=== PATIENT | female | born 1955 | race Caucasian/White ===

== ENCOUNTER 2016-10-04 08:04 | Day surgery (SDC) | payer BC ==
[2016-09-16 11:15] VITALS: BMI 27.2
[~2016-10-04 08:04] MED LIST: ALPRAZolam 0.25 MG TAB PO PRN; DEXAMETHASONE SOD PHOSPHATE 10 MG/ML 1 ML VIAL IV ONE; HEPARIN SODIUM,PORCINE 5,000 UNIT/ML 1 ML VIAL SQ ONE; LACTATED RINGERS 1,000 ML IV SCH; MIDAZOLAM 2 MG/2 ML VIAL IV PRN; ONDANSETRON 4 MG/2 ML VIAL IVP ONE; Pre Op ABX Message 1 EACH MISC MISCELLANE ONE
[2016-10-04] MEDS ORDERED: ALPRAZolam 0.25 MG TAB PO PRN (09:05)
[2016-10-04] MEDS: LACTATED RINGERS 1,000 ML IV SCH ×2 (09:06→14:43)
[2016-10-04] MEDS ORDERED: SODIUM BICARB 4% 5 ML VIAL (0.48 MEQ/ML) MISCELLANE ONE (09:42)
[2016-10-04] MEDS ORDERED: LIDOCAINE 1% INJ 10MG/ML (20 ML MDV) SQ ONE (09:42)
[2016-10-04] MEDS ORDERED: METHYLENE BLUE 10 MG/ML 1 ML VIAL IV ONE ×2 (12:14→15:00)
--- NOTE | 2016-10-04 12:29 | NM ---
EXAMINATION TYPE: NM sentinel node injection DATE OF EXAM: 10/04/2016 10:35 AM COMPARISON: NONE HISTORY: Left breast cancer TECHNIQUE AND FINDINGS: The procedure of sentinel lymph node injection was explained to the patient. The benefits, alternatives, and risks were discussed. An informed consent was then obtained. Overlying skin is cleaned with sterile alcohol. Lidocaine buffered with bicarbonate was used as anes thetic into the skin and subcutaneous tissue surrounding the nipple. Following this, 519 uCi Tc 99m Filtered Sulfur Colloid was injected into 4 equivalent doses at 12, 3, 6, and 9:00 position surroundi ng the left nipple intradermally. The injection sites were massaged by medical laboratory technologist for 10 minutes after injection. T he patient tolerated the procedure well without any immediate complication. The patient was kept in the radiology department for short stay after the procedure and then taken to surgery for surgical pr ocedure what is presumed intraoperative gamma probe will be used for sentinel lymph node detection. IMPRESSION: Left breast radiotracer injection for sentinel node localization as above.
[2016-10-04] MEDS ORDERED: HEPARIN SODIUM,PORCINE 5,000 UNIT/ML 1 ML VIAL SQ ONE (14:32)
[2016-10-04] MEDS ORDERED: fentaNYL (PF) 50 MCG/ML 2 ML AMP ONE (14:45)
[2016-10-04] MEDS ORDERED: MIDAZOLAM 2 MG/2 ML VIAL ONE (14:45)
[2016-10-04] MEDS ORDERED: ONDANSETRON 4 MG/2 ML VIAL ONE (14:45)
[2016-10-04] MEDS ORDERED: NEOSTIGMINE 1 MG/ML 10 ML VIAL ONE (14:45)
[2016-10-04] MEDS ORDERED: ceFAZolin 1,000 MG VIAL ONE (14:45)
[2016-10-04] MEDS ORDERED: GLYCOPYRROLATE 0.2 MG/ML 2 ML VIAL ONE (14:45)
[2016-10-04] MEDS ORDERED: ROCURONIUM BROMIDE 10 MG/ML 10 ML VIAL IV ONE (14:45)
[2016-10-04] MEDS ORDERED: METHYLENE BLUE 10 MG/ML 1 ML VIAL INJ ONE ×2 (15:34)
--- NOTE | 2016-10-04 16:02 | MM ---
EXAMINATION TYPE: MG pre op needle loc LT DATE OF EXAM: 10/04/2016 10:56 AM COMPARISON: Prior mammogram CLINICAL HISTORY: Left breast carcinoma TECHNIQUE: Needle localization with wire placement and surgical excision of area of concern in the left breast. FINDINGS: The procedure of needle localization with wire placement and than surgical excision was explained to the patient. Benefits, alternatives, and risks were discussed. An informed consent was then obtained. The overlying skin was prepped and draped in usual sterile fashion. Lidocaine buffered with bicarbonate was used as anesthetic into the skin and subcutaneous tissue up to the level of area of concern. Subsequent 90 degrees mammogram show the needle to be in satisfactory position relative to the targeted area. At this point, wire was placed and the needle was withdrawn. The wire is noted to be suboptimally positioned and using similar technique and a second wire was placed in appropriate position. The wires were fixed to patient's skin. Images were marked for surgeon. The patient tolerated the procedure well without any immediate complication. The patient was kept in the radiology department for short stay after the procedure and then taken to surgery for surgical excision. Metallic marker and wire are identified in specimen mammogram. The patient was kept in hospital for short stay after the procedure and then discharged home in stable condition. IMPRESSION: Successful, uncomplicated needle localization with wire placement and surgical excision of marker in the left breast, full pathology results to follow. Pathology Results: Malignant A. LEFT AXILLA SENTINEL LYMPH NODE, BIOPSY: LYMPH NODE WITH PREVIOUS BIOPSY RELATED CHANGES INCLUDING FIBROSIS, FAT NECROSIS, HEMOSIDERIN LADEN MACROPHAGES AND FOREIGN BODY REACTION TO EMBEDDED REFRACTILE MATERIAL. NEGATIVE FOR METASTATIC MALIGNANCY. CK7 AND OLGA IMMUNOPEROXIDASE STAINS ARE CONFIRMATORY ( CONTROLS APPROPRIATE). B. BREAST, LEFT, LUMPECTOMY: INVASIVE DUCTAL CARCINOMA AND DUCTAL CARCINOMA IN SITU. INVASIVE CARCINOMA EXTENDS TO BLUE INKED (ANTERIOR) AND GREEN INKED ( INFERIOR) MARGINS. EXTENSIVE LOBULAR NEOPLASIA (ALH/LCIS). SEE SURGICAL PATHOLOGY CANCER CASE SUMMARY AND COMMENT. C. BREAST, LEFT, MEDIAL MARGIN RE-EXCISION: BENIGN BREAST WITH FIBROCYSTIC CHANGES AND PREVIOUS BIOPSY SITE RELATED CHANGES. D. BREAST, LEFT, SUPERIOR MARGIN RE-EXCISION: BENIGN BREAST WITH FIBROCYSTIC CHANGES. E. BREAST, LEFT, NEW LATERAL MARGIN, EXCISION: LOBULAR NEOPLASIA (ALH/LCIS). BACKGROUND FIBROCYSTIC CHANGES. SEE COMMENT. F. BREAST, LEFT NEW POSTERIOR MARGIN, EXCISION: BENIGN BREAST WITH FIBROCYSTIC CHANGES. G. BREAST, LEFT, NEW INFERIOR MARGIN, EXCISION: BENIGN BREAST WITH FIBROCYSTIC CHANGES AND FOCAL OSSEOUS METAPLASIA. Recommendation Appropriate oncologic management. MTDD
--- NOTE | 2016-10-04 16:11 | MM ---
Surgical specimen HISTORY: Status post excision Patient's surgical clip, wire are present within the specimen, stellate density within the soft tissues compatible with patient's history of breast carcinoma. See dictated report preoperative needle localization date. Recommendation Appropriate oncologic management. MTDD
[2016-10-04] MEDS ORDERED: LACTATED RINGERS 1,000 ML IV ONE (16:29)
--- NOTE | 2016-10-04 16:51 | P.OP ---
Date of Procedure: 10/04/16 Preoperative Diagnosis: Left breast cancer Postoperative Diagnosis: Same Procedure(s) Performed: Left endolymphatic node mapping, left breast lumpectomy, hyperplastic tissue rearrangement, insertion of Biozorb, left axillary sentinel node biopsy Anesthesia: LEXIE Surgeon: Tonya Shell Estimated Blood Loss (ml): 5 IV fluids (ml): 900 Pathology: other (Left breast lumpectomy tissue, left breast sentinel node biopsy) Condition: stable Disposition: PACU Indications for Procedure: Left breast cancer Operative Findings: Left breast dense tissue Description of Procedure: Patient was taken to the operating room and following induction of general anesthesia the left breast and axilla were prepped and draped in a sterile fashion. Prior to this 5 mL of half-strength methylene blue were injected in the left periareolar region and the breast was massaged. The lumpectomy portion was performed initially. An incision was made and carried down to the hook of the wire. Surrounding tissue was excised. The biopsy cavity was clearly seen in our resected specimen. Additional margins were obtained secondary to concern that the tissue was very dense. Following this the specimen was interrogated using the margin probe. Superior lateral and inferior margins appeared to have some positivity on the margin probe. All margins were reexcised and no margins were sent for final evaluation. These were painted as to the exterior surface of the margin. Additionally specimen itself was painted. Specimen was sent for radiographic evaluation and confirmation that the clip been removed was in the specimen was obtained. After assured that hemostasis was attained the axilla was approached. Using the neoprobe the location for the incision was chosen. Incision was made and carried down to the axillary tissue. Blue radioactive lymph node was identified. The 10 second count on the lymph node was and 97,000. The background count was 6 at 10 seconds. The lymph node was sent for pathologic evaluation and frozen section did not reveal any tumor within the lymph node. There was reactive change this is most likely consistent with a lymph node which had been sampled adequately biopsied preoperatively. The deep tissues were closed using 3-0 Vicryl suture followed by closure of the skin using 4-0 Monocryl. Prior to positioning the inferior wall instruments counts were correct as were changed. Following this the breast cavity was again approached the abdomen in plastic freeing of the tissue was performed such that the tissue fell into the cavity space however the cavity was relatively and marked using the BioSorb. The BioSorb size was used. The dissection was carried to the muscle of the chest wall anteriorly just under the vaginal assured that hemostasis was attained BioSorb was secured in place using 2-0 Vicryl suture. The breast tissues were reapproximated over the BioSorb using 3-0 Vicryl sutures. Skin was closed with 4-0 Monocryl. Patient tolerated procedure in stable condition all instrument and sponge counts were correct at the end of the case. All instrument and sponge counts were correct at the end of the case.
--- NOTE | 2016-10-04 16:53 | P.DS ---
Providers Attending physician: Tonya Shell Primary care physician: Edmund Sykes Plan - Discharge Summary New Discharge Prescriptions: HYDROcodone/APAP 5-325MG [[place] 5] 1 - 2 each PO Q4H PRN #20 tab PRN Reason: Pain Discharge Medication List Aspirin [Adult Low Dose Aspirin EC] 81 mg PO DAILY 09/16/16 [History] Atorvastatin [Lipitor] 20 mg PO HS 09/16/16 [History] Cholecalciferol [Vitamin D3] 5,000 unit PO DAILY 09/16/16 [History] Nebulzier 1 applicate IH DIRECTED PRN 09/16/16 [History] amLODIPine BESYLATE [Norvasc] 5 mg PO QAM 09/16/16 [History] Cyanocobalamin [Vitamin B-12] 1,000 mcg PO DAILY 09/21/16 [History] HYDROcodone/APAP 5-325MG [[place] 5] 1 - 2 each PO Q4H PRN #20 tab 10/04/16 [Rx] Follow up Appointment(s)/Referral(s): Tonya Shell MD [STAFF PHYSICIAN] - 1 Week Activity/Diet/Wound Care/Special Instructions: Patient may shower after 48 hours Wear bra at all times Do not drive if taking pain medications Do not drive today Discharge Disposition: HOME SELF-CARE
[2016-10-04 17:10] VITALS: TEMP 97.5
[2016-10-04] MEDS: HYDROmorphone 1 MG/ML 1 ML SYRINGE IVP PRN ×2 (17:31→17:39)
[2016-10-04 17:57] VITALS: RESP 16
[2016-10-04] MEDS ORDERED: HYDROcodone/APAP 5-325MG 1 EACH TAB PO ONE (18:14)
[2016-10-04] MEDS ORDERED: PROMETHAZINE INJ 25 MG/ML 1 ML VIAL IVPB ONE (19:26)
[2016-10-04] MEDS ORDERED: SCOPOLAMINE 1.5MG/72HR PATCH TRANSDERM ONE (19:27)
[2016-10-04 19:53] VITALS: BP 143/80; PULSE 86
== END 2016-10-04 20:26 | disposition home or self-care (01) ==
LOC: OR 08:04
PROVIDERS: ATTEND Surgery
DX: D05.12 Intraductal carcinoma in situ of left breast (principal); I89.8 Other specified noninfective disorders of lymphatic vessels and lymph nodes; M79.89 Other specified soft tissue disorders; I10 Essential (primary) hypertension; E78.5 Hyperlipidemia, unspecified; F17.200 Nicotine dependence, unspecified, uncomplicated; J40 Bronchitis, not specified as acute or chronic; Z79.82 Long term (current) use of aspirin; Z79.899 Other long term (current) drug therapy
CPT/HCPCS: 19301; 38500; 88342; 88331; 88307; 88341; 76098; 19281; 38792; C1713; A9541; J2250; J1644; J1100; J2550; J2710; J2405; J0690; J2001; Q9968; J3010; J1170

== ENCOUNTER 2016-10-25 12:26 | Observation (INO) | payer BC ==
[2016-10-20 11:39] VITALS: BMI 27.2
[~2016-10-25 12:26] MED LIST changes: -ALPRAZolam 0.25 MG TAB PO PRN; -ONDANSETRON 4 MG/2 ML VIAL IVP ONE; +SCOPOLAMINE 1.5MG/72HR PATCH TRANSDERM ONE
[2016-10-25] MEDS ORDERED: HEPARIN SODIUM,PORCINE 5,000 UNIT/ML 1 ML VIAL SQ ONE (12:30)
[2016-10-25] MEDS ORDERED: LIDOCAINE 1% 20 ML VIAL (10MG/ML) FOR IV START INTRADERMA ONE (12:48)
[2016-10-25] MEDS: ONDANSETRON 4 MG/2 ML VIAL IVP ONE ×2 (12:48→17:03)
[2016-10-25] MEDS ORDERED: ONDANSETRON 4 MG/2 ML VIAL IM STA (13:10)
[2016-10-25] MEDS ORDERED: SCOPOLAMINE 1.5MG/72HR PATCH TRANSDERM SCH (13:15)
[2016-10-25] MEDS ORDERED: LIDOCAINE 1% INJ 10MG/ML (20 ML MDV) ONE (14:32)
[2016-10-25] MEDS ORDERED: PROPOFOL 10 MG/ML 20 ML VIAL IV ONE (14:32)
[2016-10-25] MEDS ORDERED: VECURONIUM 10 MG VIAL IV ONE (14:32)
[2016-10-25] MEDS ORDERED: NEOSTIGMINE 1 MG/ML 10 ML VIAL ONE (14:32)
[2016-10-25] MEDS ORDERED: SUCCINYLCHOLINE CHLORIDE 100 MG/5 ML SYR IV ONE (14:32)
[2016-10-25] MEDS ORDERED: fentaNYL (PF) 50 MCG/ML 2 ML AMP ONE (14:32)
[2016-10-25] MEDS ORDERED: GLYCOPYRROLATE 0.2 MG/ML 2 ML VIAL ONE (14:32)
[2016-10-25] MEDS ORDERED: MIDAZOLAM 2 MG/2 ML VIAL ONE (14:32)
--- NOTE | 2016-10-25 14:42 | P.PN ---
Progress Note - Text Patient is status post left breast lumpectomy with the anterior surgical margin positive for tumor. The procedure was done for invasive ductal carcinoma of the breast. After discussion with the patient and her she opted for a mastectomy with reconstruction rather than a reexcision of the anterior margin. Additionally noted that the patient is a smoker and we also discussed chest x- ray preoperatively, however at this time we are going to do the definative treatment for the the breast cancer first and then further surveillance for any other primary tumors will be recommended. This was discussed with Dr. Castaneda from medical oncology as well, and he is in agreement.
[2016-10-25] MEDS ORDERED: SODIUM CHLORIDE 0.9% 50 ML with ceFAZolin 2,000 MG IV ONE ×2 (14:45)
[2016-10-25] MEDS ORDERED: LACTATED RINGERS 1,000 ML IV ONE ×2 (15:26)
[2016-10-25] MEDS ORDERED: NALOXONE 0.4 MG/ML 1 ML VIAL IV PRN (15:50)
[2016-10-25] MEDS ORDERED: ONDANSETRON 4 MG/2 ML VIAL IVP PRN (15:50)
--- NOTE | 2016-10-25 15:50 | P.OP ---
Date of Procedure: 10/25/16 Preoperative Diagnosis: Left breast cancer, lumpectomy with anterior margin showing positive invasive cancer Postoperative Diagnosis: Same Procedure(s) Performed: Simple mastectomy with reconstruction Anesthesia: LEXIE Surgeon: Tonya Shell Estimated Blood Loss (ml): 10 IV fluids (ml): 1,000 Pathology: other (Left breast) Condition: stable Disposition: PACU Indications for Procedure: Prior lumpectomy with invasive cancer seen at the anterior margin of resection on pathology Operative Findings: Postop changes with Biozorb in place Description of Procedure: Patient was taken to the operating room and following induction of general anesthesia the left breast was prepped and draped in a sterile fashion. A circumareolar incision was made and extended around the lumpectomy scar. Superior skin flaps were developed down to the pectoralis major muscle. Inferior skin flaps were developed as well as medial and lateral skin flaps. Flaps were taken down to the muscle of the chest wall. Following this the breast was dissected off the chest wall from medial to lateral being careful to maintain hemostasis using the electrocautery device and the LigaSure. The lumpectomy cavity was completely excised. This extended down onto the the chest wall and fairly superficial under the skin. After we were assured that hemostasis was attained the wound was well irrigated. Dr. Medina then entered to do the reconstruction. All instrument and sponge counts were correct at this portion of the procedure.
[2016-10-25] MEDS: HYDROmorphone 1 MG/ML 1 ML SYRINGE IVP PRN ×4 (17:03→17:24)
[2016-10-25] MEDS: ceFAZolin 1,000 MG in DEXTROSE/WATER 1 50ML.BAG IVPB SCH ×2 (20:25→23:05)
[2016-10-25 21:06] VITALS: RESP 16
[2016-10-25] MEDS: HYDROmorphone 1 MG/ML 1 ML SYRINGE IV PRN (21:18)
[2016-10-25] MEDS: HEPARIN SODIUM,PORCINE 5,000 UNIT/ML 1 ML VIAL SQ SCH (23:05)
[2016-10-25] MEDS: DEXTROSE 5%-0.45% NACL 1,000 ML IV SCH (23:12)
[2016-10-26] MEDS: HYDROmorphone 1 MG/ML 1 ML SYRINGE IV PRN ×2 (00:20→03:08)
[2016-10-26] MEDS: HYDROcodone/APAP 5-325MG 1 EACH TAB PO PRN ×2 (05:00→09:16)
[2016-10-26] MEDS: ceFAZolin 1,000 MG in DEXTROSE/WATER 1 50ML.BAG IVPB SCH (05:31)
[2016-10-26 07:31] VITALS: BP 115/59; PULSE 76; TEMP 98
[2016-10-26] MEDS: NICOTINE 21MG/24HR PATCH TRANSDERM SCH ×2 (08:05→09:03)
[2016-10-26] MEDS: DEXTROSE 5%-0.45% NACL 1,000 ML IV SCH ×2 (08:05→09:16)
[2016-10-26] MEDS: HEPARIN SODIUM,PORCINE 5,000 UNIT/ML 1 ML VIAL SQ SCH (08:40)
[2016-10-26] MEDS ORDERED: PANTOPRAZOLE 40 MG/10 ML VIAL IV SCH (09:00)
[2016-10-26] MEDS ORDERED: amLODIPine 5 MG TAB PO SCH (09:00)
--- NOTE | 2016-10-26 10:01 | OP ---
DATE OF SERVICE: SURGEON: IKER MADERA MD SENIOR RESIDENT CARE DIRECTOR: PREOPERATIVE DIAGNOSES: 1. Acquired loss, left breast. 2. Left breast cancer. POSTOPERATIVE DIAGNOSES: 1. Acquired loss, left breast. 2. Left breast cancer. OPERATIVE PROCEDURES: 1. Immediate reconstruction of left breast following mastectomy with insertion of tissue synthetic department supervisor and subsequent outpatient expansion. 2. Implantation of reconstructive graft for left breast reconstruction. OPERATIVE INDICATIONS: The patient is a 61-year-old female with multifocal cancer of the left breast. She is to undergo a left simple mastectomy. Prior to this choice the patient underwent a lumpectomy, margins were not clear. She did have a axillary lymph node removed, negative for cancer. She was referred to my care for breast reconstruction and has elected to proceed with a tissue synthetic department supervisor style technique. She understands the staged nature of breast reconstructive surgery as well as potential risks and complications associated with today's surgery. OPERATIVE PROCEDURE SUMMARY: The patient was seen in the presurgical area. Markings made, procedure reviewed, all questions answered. She was transported to the operating room where she was placed in supine position. Following induction of general endotracheal anesthesia, Dr. Shell and her surgical team initiated left simple mastectomy. Once that procedure was completed, I was contacted to come to the operating suite. The patient was under general endotracheal anesthesia in the supine position. All sponge and needle counts from the prior procedure were correct. The left breast reconstruction was initiated. The pectoralis major muscle was identified where it joined the chest wall. Loose areolar connective tissue at the lateral aspect was divided with cautery, allowing entry into the potential plane between the pectoralis major and minor muscles. The of the medial attachment fibers of the pectoralis major muscle to ribs were released with cautery but not sternal attachments. All inferior attachments were released. The patient's pectoralis major muscle fascia had been removed with mastectomy along the inferior portion and fibers here were greatly attenuated. Several rents were present at the inferior aspect of the pectoralis major muscle. Also the muscle was not sufficient for reconstructive purpose. Additional muscle tissue was required. Inferior medially, rectus abdominis muscle and fascia, inferolaterally, external abdominal oblique muscle and fascia, and laterally serratus anterior muscle and fascia were all elevated until sufficient submuscular plane created. Due to several tears in the pectoralis major muscle and overall weakness of the muscle and thinness in areas, SurgiMend reconstructive graft was opened on the field and the muscle flap reconstructive procedure converted to prepare for inferior sling positioning of the reconstructive graft. The graft used was SurgiMend 10 x 15 cm thin and fenestrated. Once revitalized with room temperature saline, the SurgiMend was pre-stretched and then after assuring optimal hemostasis and irrigating the field, the SurgiMend was sutured to the inferior muscular cuff created, using running 3-0 Vicryl suture. Gloves were now changed and a tissue synthetic department supervisor opened on the field from the [employer] model reference # [id number], serial #[id number]. The device was only handled by surgeon. All air extracted, 50 mL of 0.9 normal saline instilled. It was inserted deep to the muscle flap SurgiMend layers. The SurgiMend was then advanced over the tissue synthetic department supervisor in cephalad fashion, but deep to the muscle flap. The muscle flap advanced in a caudad direction and then the muscle flap and SurgiMend layers were inset to each other using running and interrupted 3-0 Vicryl sutures. Complete coverage of the synthetic department supervisor was obtained. Additional 100 mL of 0.9 normal saline injected in the synthetic department supervisor, making the final volume in the synthetic department supervisor 150 mL. Irrigation was performed. Hemostasis was excellent. A #19 round Mauricio channel drain was inserted in the surgical field brought through separate stab incision in the left anterolateral chest wall, sutured in place with 2-0 Prolene. The mastectomy skin incision was now closed. The lateral extension from the circumareolar approach was closed, deep dermal layer using inverted interrupted 4-0 Monocryl directly approximated tissue until reaching the central circular area. The circumareolar portion was then closed as a pursestring using deep dermal 2-0 Prolene suture. Next, 5-0 Prolene running simple suture was then used to complete the lateral extension, superficial dermal and epidermal closure. Shelbi were used to complete the pursestring approximation of the epidermis. The drain was connected to closed bulb suction and patent. The surgical field was cleansed with saline, dried, and covered with postoperative gauze bandage using 3M Medipore tape to secure the gauze. The patient was awakened from her anesthetic, extubated and transferred to the recovery room in good condition with stable vital signs. There were no complications.
--- NOTE | 2016-10-26 10:51 | CONS ---
DATE OF CONSULTATION: 10/25/2016. REASON FOR CONSULTATION: Medical management requested by Dr. Harper Shell. CONSULTATION: This is a 61-year-old patient of Dr. Sykes who has undergone a simple mastectomy with reconstruction. The patient has some pain at the operative site. Family present at the bedside. Post procedure, no nausea, vomiting, or chest pain. Denies any cardiac history. Patient's chronic medical stable conditions include hyperlipidemia, hypertension. Patient is a smoker. The patient has a history of breast cancer. REVIEW OF SYSTEMS: CONSTITUTIONAL: None. HEENT: None. RESPIRATORY: None. CARDIOVASCULAR: None. GASTROINTESTINAL: None. GENITOURINARY: None. MUSCULOSKELETAL: None. Dermatologic: None. HEMATOLOGIC: None. LYMPHATIC: None. PSYCHIATRY: None. NEUROLOGICAL: None. Past medical history of hyperlipidemia, hypertension, right breast cancer in 2005, left breast cancer diagnosed September 2016. PAST SURGICAL HISTORY: ( ) breast ( ), left simple mastectomy. SOCIAL HISTORY: Smokes anywhere from 1/2 pack to a pack a day, close to 40 years. Alcohol occasional. . Family history of pulmonary embolism, cancer. HOME MEDICATIONS: 1. Norvasc 5 mg p.o. daily. 2. Vitamin B12 1000 mcg p.o. daily. 3. Vitamin D3, 5000 units p.o. daily. 4. Lipitor 20 mg q.h.s. 5. Aspirin 81 mg p.o. daily. ALLERGIES: None. On examination: Afebrile, pulse 91, respiration 16, blood pressure 127/73, pulse ox 98% on room air. GENERAL APPEARANCE: Lying in bed, tired-appearing. EYES: Pupils equal. Conjunctivae normal. HEENT: External appearance of nose and ears normal. Oral cavity normal. NECK: JVD not raised. Mass not palpable. RESPIRATORY: Effort normal. LUNGS: Fair air entry. CARDIOVASCULAR: Heart sounds muffled. No edema. ABDOMEN: Soft, nontender. Liver and spleen not palpable. LYMPHATIC: No lymph nodes palpable in neck or axillae. PSYCHIATRY: Alert and oriented x3. Mood and affect normal. INVESTIGATIONS: No blood work. ASSESSMENT: 1. Hyperlipidemia. 2. Essential hypertension. 3. Chronic nicotine dependence. 4. Patient is a smoker. 5. Simple mastectomy. PLAN: Patient's home medications will be resumed. Pain control per Dr. Harper Woo. We will continue ( ) Venodyne boots in place. Patient was given a nicotine patch. Care was discussed with the patient and family at bedside. Thank you, Dr. Dr. Harper Dominguez.
--- NOTE | 2016-10-26 11:20 | P.DS ---
Providers Date of admission: 10/26/16 00:50 Expected date of discharge: 10/26/16 Attending physician: Tonya Shell Consults: 10/25/16 15:53 Consult Physician Routine Consulting Provider: Luis Beck Consult Reason/Comments: medical managment Do you want consulting provider notified?: Yes Primary care physician: Edmund [facility] Course: 61-year-old female who was admitted on the day of admission 25 of October to undergo an elective simple mastectomy with reconstruction secondary to left breast cancer with anterior margin showing positive invasive cancer. Patient elected to undergo the procedure no postop events noted and on the morning of the the surgical dressing was removed by the surgeon. A Renny Rivera drain was in place left breast. Renny-Rivera drain 30 mL's for the past 8 hours The surgical site benign no redness suture line well approximated. Patient stated the pain medication was effective for pain control. The surgeon to discuss with the patient a follow-up visit this Monday possible Renny- Rivera drain to be removed if the drainage was less than 30 mL and 24 hours if greater than 30 mL and a 24-hour time period the drain would be left in place patient with see the surgeon the following week in the office. Patient verbalized an understanding. Family at bedside surgeon did answer questions. Patient was felt to be clinically stable and appropriate to proceed with a discharge Impression discharge diagnosis Left breast cancer lumpectomy with anterior margin showing positive invasive cancer Simple mastectomy with reconstruction done on October 26 2016 Hypertension essential benign Dyslipidemia Active tobacco dependency greater than a 20 year history with probable COPD The above dictated assessment and findings were discussed with Dr. Eddie Woo . Impression and the plan of care have been dictated as directed. Dania Barnett nurse practitioner acting as a scribe for Dr. Soler Plan - Discharge Summary New Discharge Prescriptions: HYDROcodone/APAP 5-325MG [[place] 5-325] 1 each PO Q4HR PRN #30 tab PRN Reason: Moderate Pain Discharge Medication List Aspirin [Adult Low Dose Aspirin EC] 81 mg PO DAILY 09/16/16 [History] Atorvastatin [Lipitor] 20 mg PO HS 09/16/16 [History] Cholecalciferol [Vitamin D3] 5,000 unit PO DAILY 09/16/16 [History] amLODIPine BESYLATE [Norvasc] 5 mg PO QAM 09/16/16 [History] Cyanocobalamin [Vitamin B-12] 1,000 mcg PO DAILY 09/21/16 [History] HYDROcodone/APAP 5-325MG [[place] 5-325] 1 each PO Q4HR PRN #30 tab 10/26/16 [Rx] Nicotine 21Mg/24Hr Patch [Habitrol] 1 patch TRANSDERM DAILY patch 10/26/16 [Rx] Follow up Appointment(s)/Referral(s): Tonya Shell MD [STAFF PHYSICIAN] - 10/28/16 Patient Instructions/Handouts: Scopolamine (Absorbed through the skin) Activity/Diet/Wound Care/Special Instructions: Renny-Rivera drain if less than 30 mL in a 24-hour period anticipate drain will be removed in Dr. Woo's office on follow-up office visit this Monday. Renny-Rivera drain has greater than 30 mouth in a 24-hour time period drain will be removed in a follow-up visit in a week at Dr. Woo's office Keep scheduled appointment with the plastic surgeon Dr. Medina Discharge Disposition: HOME SELF-CARE
[2016-10-26] MEDS ORDERED: ATORVASTATIN 20 MG TAB PO SCH (21:00)
--- NOTE | 2016-10-27 21:54 | PN ---
DATE OF SERVICE: 10/26/2016 PRESENTING COMPLAINT: ( ). INTERVAL HISTORY: This is a patient this status post mastectomy I saw yesterday afternoon on 10/26/2016. The patient is feeling better, lying in bed, comfortable. Overall feeling better. Did tolerate some diet. Review of systems done for constitutional, cardiovascular, GI, pulmonary; relevant findings as above. Current medications are reviewed. On examination, temperature 98, pulse 76, respirations 16, blood pressure 115/59, pulse ox 98% on room air. GENERAL APPEARANCE: Lying in bed, comfortable. EYES: Pupils equal. Conjunctivae normal. NECK: JVD not raised. Mass not palpable. RESPIRATORY: Clear. CARDIOVASCULAR: First and second sounds normal. No edema. ABDOMEN: Soft, nontender. Liver and spleen not palpable. PSYCHIATRY: Alert and oriented times three. Mood and affect normal. INVESTIGATIONS: No blood work. ASSESSMENT: 1. Hyperlipidemia. 2. Essential hypertension. 3. Chronic nicotine dependence. Patient is a smoker. 4. Simple mastectomy. PLAN: Continue current medication and treatment plan. Discharge planning per Dr. Harper Woo. Questions were answered.
== END 2016-10-26 12:23 | disposition home or self-care (01) ==
LOC: OR 12:26 → 3SUR 16:44 → OR 10-26 00:50 → 3SUR 10-26 00:50
PROVIDERS: ADMIT Surgery; ATTEND Surgery
DX: C50.912 Malignant neoplasm of unspecified site of left female breast (principal); M62.81 Muscle weakness (generalized); N60.22 Fibroadenosis of left breast; F17.200 Nicotine dependence, unspecified, uncomplicated; I10 Essential (primary) hypertension; E78.5 Hyperlipidemia, unspecified; Z79.82 Long term (current) use of aspirin; Z79.899 Other long term (current) drug therapy; Z82.49 Family history of ischemic heart disease and other diseases of the circulatory system
CPT/HCPCS: 88342; 88307; 88341; 19303; 19357; G0378; C1789; C1763; J2250; J1644 ×2; J1100; J2710; J2405; J2001; J3010; J1170 ×2; J0690 ×2; J0330; J2704; C9113; 96361

== ENCOUNTER 2017-01-01 19:10 | Inpatient (IN) | payer BC ==
[2017-01-01] MEDS ORDERED: AMPICILLIN-SULBACTAM 3 GM in SODIUM CHLORIDE 0.9% 100 ML IVPB STA (20:04)
--- NOTE | 2017-01-01 20:07 | ED ---
General Adult HPI - General Chief complaint: Recheck/Abnormal Lab/Rx Stated complaint: possible infection Time Seen by Provider: 01/01/17 19:43 Source: patient, RN notes reviewed Mode of arrival: ambulatory Limitations: no limitations - History of Present Illness Initial comments: Patient 61-year-old female who presents emergency room today with a chief complaint of possible infection to left breast. Patient does admit to a history of a partial mastectomy performed late in October of this year by Dr. Chilo Healy. She states that yesterday when she woke up she noticed little redness to the area. States she called her surgeon who prescribed Keflex. She states she's had a total of 4 doses is taking last one prior to arrival. She states she's noticed increased redness today and low-grade fever. States called surgeon was advised come here to the emergency room for evaluation. Patient denies any other complaints or symptoms. States she's not had any Tylenol Motrin today. She does admit to some local pain tenderness but states she feels comfortable. Patient denies any recent shortness of breath, chest pain , back pain, abdominal pain, nausea or vomiting, numbness or tingling, dysuria or hematuria, constipation or diarrhea, headaches or visual changes, or any other complaints. - Related Data Home Medications Medication Instructions Recorded Confirmed Aspirin [Adult Low Dose Aspirin EC] 81 mg PO DAILY 09/16/16 01/01/17 Atorvastatin [Lipitor] 20 mg PO HS 09/16/16 01/01/17 Cholecalciferol [Vitamin D3] 5,000 unit PO DAILY 09/16/16 01/01/17 amLODIPine BESYLATE [Norvasc] 5 mg PO QAM 09/16/16 01/01/17 Cyanocobalamin [Vitamin B-12] 1,000 mcg PO DAILY 09/21/16 01/01/17 Cephalexin [Keflex] 500 mg PO QID 01/01/17 01/01/17 Allergies Allergy/AdvReac Type Severity Reaction Status Date / Time No Known Allergies Allergy Verified 01/01/17 20:10 Review of Systems ROS Statement: Those systems with pertinent positive or pertinent negative responses have been documented in the HPI. ROS Other: All systems not noted in ROS Statement are negative. Past Medical History Past Medical History: Cancer, Hyperlipidemia, Hypertension Additional Past Medical History / Comment(s): Hx Rt breast cancer 2005; LT BREAST 09/2016. History of Any Multi-Drug Resistant Organisms: None Reported Past Surgical History: Breast Surgery Additional Past Surgical History / Comment(s): RT breast lumpectomy; LT BREAST LUMPECTOMY, SENITEL NODE BX 10/04/16. 10/25/16 LT SIMPLE MASECTOMY W/RECONSTRUCTION Past Anesthesia/Blood Transfusion Reactions: Motion Sickness, Postoperative Nausea & Vomiting (PONV) Past Psychological History: No Psychological Hx Reported Smoking Status: Current every day smoker Past Alcohol Use History: Occasional Additional Past Alcohol Use History / Comment(s): STARTED SMOKING AT AGE 20 smokes 1/2 -1 PPD Past Drug Use History: None Reported - Past Family History Mother Family Medical History: Cancer, Pulmonary Embolus General Exam - General Exam Comments Initial Comments: General: The patient is awake and alert, in no distress, and does not appear acutely ill. Eye: Pupils are equal, round and reactive to light, extra-ocular movements are intact. No nystagmus. There is normal conjunctiva bilaterally. No signs of icterus. Ears, nose, mouth and throat: There are moist mucous membranes and no oral lesions. Neck: The neck is supple, there is no tenderness or JVD. Cardiovascular: There is a regular rate and rhythm. No murmur, rub or gallop is appreciated. Respiratory: Lungs are clear to auscultation, respirations are non-labored, breath sounds are equal. No wheezes, stridor, rales, or rhonchi. Musculoskeletal: Normal ROM, no tenderness. Strength 5/5. Sensation intact. Pulses equal bilaterally 2+. Neurological: A&O x 3. CN II-XII intact, There are no obvious motor or sensory deficits. Coordination appears grossly intact. Speech is normal. Skin: Increased redness and firmness to the right breast. No drainage. Psychiatric: Cooperative, appropriate mood & affect, normal judgment. Limitations: no limitations Course Vital Signs 01/01/17 19:18 Temperature 100.8 F H Pulse Rate 108 H Respiratory 18 Rate Blood Pressure 126/74 O2 Sat by Pulse 96 Oximetry Medical Decision Making - Medical Decision Making Case discussed in detail with attending physician Dr. Galdamez. Patient will be admitted with consult to Dr. Chilo Healy started on antibiotics of Unasyn here in the emergency room. Disposition Clinical Impression: Cellulitis Disposition: ADMITTED IP TO THIS HOSP Condition: Stable Time of Disposition: 20:52
[2017-01-01] MEDS ORDERED: ACETAMINOPHEN TAB 500 MG TAB PO STA (20:08)
[2017-01-01] MEDS ORDERED: ACETAMINOPHEN TAB 325 MG TAB PO PRN (20:52)
[2017-01-01] MEDS ORDERED: NALOXONE 0.4 MG/ML 1 ML VIAL IV PRN (20:52)
[2017-01-01] MEDS ORDERED: HYDROmorphone 1 MG/ML 1 ML SYRINGE IV PRN (20:52)
[2017-01-01] MEDS ORDERED: ONDANSETRON 4 MG/2 ML VIAL IVP PRN (20:52)
[2017-01-01] MEDS ORDERED: HYDROcodone/APAP 5-325MG 1 EACH TAB PO PRN (20:52)
[2017-01-01] MEDS ORDERED: SODIUM CHLORIDE 0.9% 1,000 ML IV ONE (20:52)
[2017-01-01 20:58] LABS: Basophils % (A) 0 %; CH 32.4; CHCM 34.1; Eosinophils % (A) 0 %; HCT 43.3 % (34.0-46.0); HDW 2.18; HGB 14.8 gm/dL (11.4-16.0); Luc # (Auto) 0.28; Luc % (Auto) 3; Lymphocytes # (A) 1.1 k/uL (1.0-4.8); Lymphocytes % (A) 13 %; MCH 32.7 pg (25.0-35.0); MCHC 34.2 g/dL (31.0-37.0); MCV 95.4 fL (80.0-100.0); Mean Platelet Volume 6.7; Monocytes # (A) 0.5 k/uL (0-1.0); Monocytes % (A) 6 %; Neutrophils # (A) 6.8 k/uL (1.3-7.7); Neutrophils % (A) 77 %; RBC 4.54 m/uL (3.80-5.40); RDW 12.4 % (11.5-15.5); WBC 8.8 k/uL (3.8-10.6); WBC (Perox) 8.75
[2017-01-01 21:02] LABS: Appearance,Urine Clear (Clear); Bilirubin,Urine Negative (Negative); Glucose,Urine (UA) Negative (Negative); Ketones,Urine Trace (Negative); Leukocyte Esterase,Urine Small (Negative); Mucus,Urine Rare /hpf; Nitrite,Urine Negative (Negative); Particle Count 3776; Protein,Urine Trace (Negative); RBC,Urine <1 /hpf (0-5); Specific Gravity,Urine 1.025 (1.001-1.035); Squamous Epithelial Cell,Urine <1 /hpf (0-4); UA Billing (MACRO vs. MICRO) MICRO; Urobilinogen,Urine <2.0 mg/dL (<2.0); WBC,Urine 3 /hpf (0-5)
[2017-01-01 21:13] LABS: ALT 34 U/L (9-52); AST 29 U/L (14-36); Alkaline Phosphatase 77 U/L (38-126); Anion Gap 14 mmol/L; Blood Urea Nitrogen 19 mg/dL (7-17); Calcium 9.5 mg/dL (8.4-10.2); Carbon Dioxide 25 mmol/L (22-30); Chloride 101 mmol/L (98-107); Glucose 96 mg/dL (74-99); Non-African American GFR(MDRD) >60 (>60 ml/min/1.73 sqM); Potassium 4.2 mmol/L (3.5-5.1); Sodium 140 mmol/L (137-145); Total Protein 7.9 g/dL (6.3-8.2)
[2017-01-01 22:16] VITALS: BMI 28.1
[2017-01-02] MEDS: AMPICILLIN-SULBACTAM 1.5 GM in SODIUM CHLORIDE 0.9% 50 ML IVPB SCH ×2 (01:31→07:25)
[2017-01-02 07:46] VITALS: BP 106/66; PULSE 73; RESP 18; TEMP 98
[2017-01-02 09:09] LABS: ALT 32 U/L (9-52); AST 26 U/L (14-36); Alkaline Phosphatase 69 U/L (38-126); Anion Gap 13 mmol/L; Blood Urea Nitrogen 14 mg/dL (7-17); Calcium 9.1 mg/dL (8.4-10.2); Carbon Dioxide 21 mmol/L (22-30); Chloride 108 mmol/L (98-107); Glucose 96 mg/dL (74-99); Non-African American GFR(MDRD) >60 (>60 ml/min/1.73 sqM); Potassium 3.9 mmol/L (3.5-5.1); Sodium 142 mmol/L (137-145); Total Protein 6.9 g/dL (6.3-8.2)
[2017-01-02 09:16] LABS: Basophils % (A) 0 %; CH 32.1; CHCM 33.4; Eosinophils # (A) 0.1 k/uL (0-0.7); Eosinophils % (A) 1 %; HCT 39.3 % (34.0-46.0); HDW 2.18; HGB 13.3 gm/dL (11.4-16.0); Luc # (Auto) 0.24; Luc % (Auto) 4; Lymphocytes # (A) 0.8 k/uL (1.0-4.8); Lymphocytes % (A) 12 %; MCH 32.8 pg (25.0-35.0); MCHC 33.9 g/dL (31.0-37.0); MCV 96.7 fL (80.0-100.0); Mean Platelet Volume 7.1; Monocytes # (A) 0.4 k/uL (0-1.0); Monocytes % (A) 6 %; Neutrophils # (A) 5.4 k/uL (1.3-7.7); Neutrophils % (A) 78 %; RBC 4.07 m/uL (3.80-5.40); RDW 12.3 % (11.5-15.5); WBC 6.9 k/uL (3.8-10.6); WBC (Perox) 7.66
--- NOTE | 2017-01-02 14:50 | P.GSCN ---
History of Present Illness Consult date: 01/02/17 Reason for Consult: 61-year-old female presented to the emergency room with chief complaint of left breast swelling painful tender to the touch. Patient has a history of a partial mastectomy performed in October [address] Soler. Patient stated that she woke up the day before and noticed a slight redness to the left breast area. She stated that she did call the surgeon who prescribed Keflex. She stated that she took 4 doses. She noted an increased redness running a low-grade temp . She stated she called the surgeon who advised her to come to the emergency room for evaluation. Patient states 2 weeks ago she did see the plastic surgeon Dr. lopez in the office. Patient is undergoing immediate reconstruction of the left breast following a mastectomy with insertion of tissue expanders subsequently outpatient expansion has been ongoing to the left breast. In the emergency room the temp was 100.8 current temp is 98 the white count was 8.8 patient was seen in the emergency room admitted to the attending with the surgical consultation requested Review of Systems Essentially unremarkable except as mentioned in the present illness Past Medical History Past Medical History: Cancer, Hyperlipidemia, Hypertension Additional Past Medical History / Comment(s): Hx Rt breast cancer 2005; LT BREAST 09/2016. History of Any Multi-Drug Resistant Organisms: None Reported Past Surgical History: Breast Surgery Additional Past Surgical History / Comment(s): RT breast lumpectomy; LT BREAST LUMPECTOMY, SENITEL NODE BX 10/04/16. 10/25/16 LT SIMPLE MASECTOMY W/RECONSTRUCTION Past Anesthesia/Blood Transfusion Reactions: Motion Sickness, Postoperative Nausea & Vomiting (PONV) Past Psychological History: No Psychological Hx Reported Smoking Status: Current every day smoker Past Alcohol Use History: Occasional Additional Past Alcohol Use History / Comment(s): STARTED SMOKING AT AGE 20 smokes 1/2 -1 PPD Past Drug Use History: None Reported - Past Family History Mother Family Medical History: Cancer, Pulmonary Embolus Medications and Allergies Home Medications Medication Instructions Recorded Confirmed Type Aspirin [Adult Low Dose Aspirin EC] 81 mg PO DAILY 09/16/16 01/01/17 History Atorvastatin [Lipitor] 20 mg PO HS 09/16/16 01/01/17 History Cholecalciferol [Vitamin D3] 5,000 unit PO DAILY 09/16/16 01/01/17 History amLODIPine BESYLATE [Norvasc] 5 mg PO QAM 09/16/16 01/01/17 History Cyanocobalamin [Vitamin B-12] 1,000 mcg PO DAILY 09/21/16 01/01/17 History Cephalexin [Keflex] 500 mg PO QID 01/01/17 01/01/17 History Allergies Allergy/AdvReac Type Severity Reaction Status Date / Time No Known Allergies Allergy Verified 01/01/17 20:10 Surgical - Exam Vital Signs Temp Pulse Resp BP Pulse Ox 100.8 F H 108 H 18 126/74 96 01/01/17 19:18 01/01/17 19:18 01/01/17 19:18 01/01/17 19:18 01/01/17 19:18 GENERAL APPEARANCE: 61-year-old female patient is alert, oriented, in no acute distress. Sitting up in the room VITAL SIGNS: Reviewed HEENT: Head is normocephalic and atraumatic. Pupils are equal and reactive. The nares are patent. Oropharynx is clear without lesions. NECK: Supple without lymphadenopathy. Traches midline. HEART: S1, S2. Regular rate and rhythm. No murmur noted LUNGS: No crackles or wheezes are heard. Essentially clear ABDOMEN: Soft, nontender, nondistended with good bowel sounds. No peritoneal signs. No palpable organomegaly or masses. Reports no nausea vomiting no difficulty in urinating no burning with urination frequency or incontinence EXTREMITIES: Normal skin color and turgor. No cyanosis, rash, ulceration, clubbing or edema. Radial pedal pulses are 2/4 bilaterally. NEUROLOGICAL: No focal deficits. Strength and sensation are grossly intact. Chest the left breast red firm tender to the touch no drainage right breast unremarkable Results - Labs 01/02/17 08:08 01/02/17 08:08 Abnormal Lab Results - Last 24 Hours (Table) 01/02/17 01/02/17 Range/Units 08:08 08:08 Lymphocytes # 0.8 L (1.0-4.8) k/uL Chloride 108 H (98-107) mmol/L Carbon Dioxide 21 L (22-30) mmol/L Diabetes panel 01/02/17 Range/Units 08:08 Sodium 142 (137-145) mmol/L Potassium 3.9 (3.5-5.1) mmol/L Chloride 108 H (98-107) mmol/L Carbon Dioxide 21 L (22-30) mmol/L BUN 14 (7-17) mg/dL Creatinine 0.54 (0.52-1.04) mg/dL Glucose 96 (74-99) mg/dL Calcium 9.1 (8.4-10.2) mg/dL AST 26 (14-36) U/L ALT 32 (9-52) U/L Alkaline Phosphatase 69 (38-126) U/L Total Protein 6.9 (6.3-8.2) g/dL Albumin 3.9 (3.5-5.0) g/dL Calcium panel 01/02/17 Range/Units 08:08 Calcium 9.1 (8.4-10.2) mg/dL Albumin 3.9 (3.5-5.0) g/dL Pituitary panel 01/02/17 Range/Units 08:08 Sodium 142 (137-145) mmol/L Potassium 3.9 (3.5-5.1) mmol/L Chloride 108 H (98-107) mmol/L Carbon Dioxide 21 L (22-30) mmol/L BUN 14 (7-17) mg/dL Creatinine 0.54 (0.52-1.04) mg/dL Glucose 96 (74-99) mg/dL Calcium 9.1 (8.4-10.2) mg/dL Adrenal panel 01/02/17 Range/Units 08:08 Sodium 142 (137-145) mmol/L Potassium 3.9 (3.5-5.1) mmol/L Chloride 108 H (98-107) mmol/L Carbon Dioxide 21 L (22-30) mmol/L BUN 14 (7-17) mg/dL Creatinine 0.54 (0.52-1.04) mg/dL Glucose 96 (74-99) mg/dL Calcium 9.1 (8.4-10.2) mg/dL Total Bilirubin 1.0 (0.2-1.3) mg/dL AST 26 (14-36) U/L ALT 32 (9-52) U/L Alkaline Phosphatase 69 (38-126) U/L Total Protein 6.9 (6.3-8.2) g/dL Albumin 3.9 (3.5-5.0) g/dL Assessment and Plan Plan: Impression Present on admission cellulitis involving the left breast Simple mastectomy with reconstruction done 10/26/2016 involving the left breast Left breast cancer lumpectomy with anterior margins positive for invasive cancer Active tobacco dependency greater than a 20 year history with probable COPD Dyslipidemia Hypertension 10/26/2016 reconstruction of the left breast following mastectomy with insertion of tissue expanders with subsequent outpatient expansion Plan From a surgical perspective there is no surgical intervention warranted at this time. Would recommend the patient follow-up with the plastic surgeon Dr. lopez. Today in the office. This was discussed with the patient the patient' s spouse and they agree will discuss with the attending. From a surgical perspective patient could be discharged with the plan the patient with see today Dr. lopez in the office No further surgical recommendations at this time The plan is to discharge the patient and the patient will be seen in the plastic surgeon's office Dr. lopez today Thank you for allowing us to participate in the surgical management of your patient The above dictated assessment and findings were discussed with . Impression and the plan of care have been dictated as directed. Dania Barnett nurse practitioner acting as a scribe for for [].
--- NOTE | 2017-01-03 08:25 | HP ---
HISTORY AND PHYSICAL/DISCHARGE SUMMARY: DATE OF ADMISSION: This dictation is both H&P and Discharge Summary. A 61-year-old came in with left-sided breast swelling, tenderness and pain and patient is found to have cellulitis. Patient was on Keflex as an outpatient. Patient follows with Dr. Shaye Shell who did the mastectomy on the left breast and patient is supposed to follow with a plastic surgeon outside the hospital and patient has seen the plastic surgeon as an outpatient. Appears to have undergone reconstruction surgery recently. Patient came in with fever and sepsis and cellulitis of the left breast and Dr. Shell's service evaluated the patient and they are recommending to send the patient to the same surgeon and patient's family was unable to make an appointment with the plastic surgeon and patient will be discharged to follow up with the plastic surgeon at around 2:15 p.m. today. REVIEW OF SYSTEMS: CONSTITUTIONAL: No fever, no malaise, no fatigue. HEENT: No recent visual problems or hearing problems. Denied any sore throat. CARDIOVASCULAR: No chest pain, orthopnea, PND, no palpitations, no syncope. PULMONARY: No shortness of breath, no cough, no hemoptysis. GASTROINTESTINAL: No diarrhea, no nausea, no vomiting, no abdominal pain. Normoactive bowel sounds. NEUROLOGICAL: No headaches, no weakness, no numbness. HEMATOLOGICAL: Denies any bleeding or petechiae. GENITOURINARY: Denies any burning micturition, frequency, or urgency. MUSCULOSKELETAL/RHEUMATOLOGICAL: Denies any joint pain, swelling, or any muscle pain. ENDOCRINE: Denies any polyuria or polydipsia. DERMATOLOGIC: As described in HPI. The rest of the 14 point review of systems is negative. PAST MEDICAL HISTORY: Significant for breast cancer, hyperlipidemia, hypertension, right breast lumpectomy with sentinel node biopsy in the past and recent breast reconstructive surgery as mentioned above. Patient does smoke 1/2 pack per day. Denied any alcohol abuse or any drug abuse. FAMILY HISTORY: Mother had cancer and pulmonary embolus. Home medications include: 1. Aspirin. 2. Atorvastatin. 3. Cholecalciferol. 4. Amlodipine. 5. Cyanocobalamin. 6. Keflex at home. ALLERGIES: No known drug allergies. PHYSICAL EXAM: Temperature 100.8, pulse of 108, respiratory rate of 18, blood pressure 126/74, saturating at 96% on room air. LEFT BREAST: Patient has extensive cellulitis with localized of temperature and redness and tender to touch. GENERAL: The patient is alert and oriented x3, not in any acute distress. Well developed, well nourished. HEENT: Pupils are round and equally reacting to light. EOMI. No scleral icterus. No conjunctival pallor. Normocephalic, atraumatic. No pharyngeal erythema. No thyromegaly. CARDIOVASCULAR: S1 and S2 present. No murmurs, rubs, or gallops. PULMONARY: Chest is clear to auscultation, no wheezing or crackles. ABDOMEN: Soft, nontender, nondistended, normoactive bowel sounds. No palpable organomegaly. MUSCULOSKELETAL: No joint swelling or deformity. EXTREMITIES: No cyanosis, clubbing, or pedal edema. NEUROLOGICAL: Gross neurological examination did not reveal any focal deficits. LABORATORY DATA: CBC did not show any leukocytosis. Basic metabolic profile essentially within normal limits. ASSESSMENT AND PLAN: 1. Extensive cellulitis of the left breast. Patient was initially started on vancomycin and patient is subsequently being discharged and plan as mentioned above. 2. Left breast cancer, status post lumpectomy. 3. Active tobacco use. 4. Hyperlipidemia. 5. Hypertension. 6. Sepsis secondary to left breast cellulitis. Sepsis is improving at this point of time. Patient continues to have extensive cellulitis. PLAN: As mentioned in the interval history.
== END 2017-01-02 13:54 | disposition home or self-care (01) | DRG 872 ==
LOC: EC 19:10 → 4MS4W 21:00
PROVIDERS: ADMIT Internal Medicine; ATTEND Internal Medicine
DX: A41.9 Sepsis, unspecified organism (principal); I10 Essential (primary) hypertension; N61.0 Mastitis without abscess; E78.5 Hyperlipidemia, unspecified; F17.200 Nicotine dependence, unspecified, uncomplicated; J44.9 Chronic obstructive pulmonary disease, unspecified; Z79.82 Long term (current) use of aspirin; Z79.899 Other long term (current) drug therapy; Z85.3 Personal history of malignant neoplasm of breast
CPT/HCPCS: 36415; 80053; 81001; 85025; 87040; 96365; 99284; 99285

== ENCOUNTER → 2017-03-31 | Outpatient (CLI) | payer BC ==
[2017-03-31 21:24] LABS: Anion Gap 12 mmol/L; Blood Urea Nitrogen 18 mg/dL (7-17); Calcium 9.6 mg/dL (8.4-10.2); Carbon Dioxide 20 mmol/L (22-30); Chloride 108 mmol/L (98-107); Glucose 94 mg/dL (74-99); Non-African American GFR(MDRD) >60 (>60 ml/min/1.73 sqM); Potassium 4.2 mmol/L (3.5-5.1); Sodium 140 mmol/L (137-145)
== END | disposition home or self-care (01) ==
LOC: MMGSC 11:44
PROVIDERS: ATTEND Specialist
DX: N61.0 Mastitis without abscess (principal)
CPT/HCPCS: 36415; 80048

== ENCOUNTER → 2017-04-06 | Outpatient (CLI) | payer BC ==
[2017-04-06 20:14] LABS: ALT 29 U/L (9-52); AST 25 U/L (14-36); Alkaline Phosphatase 58 U/L (38-126); Anion Gap 11 mmol/L; Blood Urea Nitrogen 14 mg/dL (7-17); Calcium 9.7 mg/dL (8.4-10.2); Carbon Dioxide 22 mmol/L (22-30); Chloride 107 mmol/L (98-107); Cholesterol 210 mg/dL (<200); Glucose 88 mg/dL (74-99); HDL Cholesterol 89 mg/dL (40-60); Non-African American GFR(MDRD) >60 (>60 ml/min/1.73 sqM); Potassium 4.6 mmol/L (3.5-5.1); Sodium 140 mmol/L (137-145); Total Bilirubin 0.5 mg/dL (0.2-1.3); Triglycerides 120 mg/dL (<150)
== END ==
LOC: MMGSC 11:18
PROVIDERS: ATTEND Family Medicine
DX: I10 Essential (primary) hypertension (principal); E78.5 Hyperlipidemia, unspecified
CPT/HCPCS: 36415; 80053; 80061

== ENCOUNTER → 2018-02-16 | Outpatient (CLI) | payer BC ==
--- NOTE | 2018-02-19 07:52 | MM ---
Reason for exam: additional evaluation requested from prior study. History: Patient has history of breast cancer at age 61. Malignant MG pre op needle loc LT of the left breast, October 04, 2016. Physical Findings: Nurse did not find any significant physical abnormalities on exam. MG 3D Diag Mammo W/Cad RT CC and MLO view(s) were taken of the right breast. The breast tissue is heterogeneously dense. This may lower the sensitivity of mammography. No new abnormality. Post therapy change on the right breast. No significant new findings when compared with previous films. These results were verbally communicated with the patient and result sheet given to the patient on 02/16/18. ASSESSMENT: Benign, BI-RAD 2 RECOMMENDATION: Follow-up diagnostic mammogram of the right breast in 1 year.
== END | disposition home or self-care (01) ==
LOC: RADMAMWWP 13:05
PROVIDERS: ATTEND Family Medicine
DX: Z08 Encounter for follow-up examination after completed treatment for malignant neoplasm (principal); Z85.3 Personal history of malignant neoplasm of breast
CPT/HCPCS: 77061; 77065

== ENCOUNTER → 2019-04-23 | Outpatient (CLI) | payer BC ==
--- NOTE | 2019-04-23 09:20 | MM ---
Reason for exam: additional evaluation requested from prior study. Last mammogram was performed 1 year and 2 months ago. History: Patient is postmenopausal, has history of breast cancer at age 49, and had first child at age 31. Malignant MG pre op needle loc LT of the left breast, October 04, 2016. Mastectomy of the left breast, 2016. Lumpectomy of the right breast, 2004. Took hormonal contraceptives for 3 years beginning at age 21. Physical Findings: Nurse did not find any significant physical abnormalities on exam. MG 3D Diag Mammo W/Cad RT CC, MLO, ML, and spot compression CC view(s) were taken of the right breast. Prior study comparison: February 16, 2018, right breast MG 3d diag mammo w/cad RT. The breast tissue is heterogeneously dense. This may lower the sensitivity of mammography. Post surgical and post therapy change right breast. Medial asymmetric density does not persist on spot 3D. No significant new findings when compared with previous films. These results were verbally communicated with the patient and result sheet given to the patient on 04/23/19. ASSESSMENT: Benign, BI-RAD 2 RECOMMENDATION: Follow-up diagnostic mammogram of the right breast in 1 year.
== END | disposition home or self-care (01) ==
LOC: RADMAMWWP 08:16
PROVIDERS: ATTEND Family Medicine
DX: Z08 Encounter for follow-up examination after completed treatment for malignant neoplasm (principal); Z85.3 Personal history of malignant neoplasm of breast
CPT/HCPCS: 77061; 77065

== ENCOUNTER → 2020-07-22 | Outpatient (CLI) | payer BC ==
--- NOTE | 2020-07-27 14:36 | MM ---
Reason for exam: additional evaluation requested from prior study. Last mammogram was performed 1 year and 3 months ago. History: Patient is postmenopausal, has history of breast cancer at age 49, and had first child at age 31. Malignant MG pre op needle loc LT of the left breast, October 04, 2016. Mastectomy of the left breast, 2016. Lumpectomy of the right breast, 2004. Chemotherapy, 2004. Radiation therapy, 2004. Took hormonal contraceptives for 3 years beginning at age 21. Physical Findings: Nurse did not find any significant physical abnormalities on exam. MG 3D Diag Mammo W/Cad RT CC and MLO view(s) were taken of the right breast. Prior study comparison: April 23, 2019, right breast MG 3d diag mammo w/cad RT. February 16, 2018, right breast MG 3d diag mammo w/cad RT. The breast tissue is heterogeneously dense. This may lower the sensitivity of mammography. Right upper outer quadrant clips and surgical scar. Benign appearing calcifications in the right breast. No significant new findings when compared with previous films. These results were verbally communicated with the patient and result sheet given to the patient on 07/22/20. ASSESSMENT: Benign, BI-RAD 2 RECOMMENDATION: Routine screening mammogram of the right breast in 1 year.
== END | disposition home or self-care (01) ==
LOC: RADMAMWWP 14:47
PROVIDERS: ATTEND Family Medicine
DX: R92.8 Other abnormal and inconclusive findings on diagnostic imaging of breast (principal); Z85.3 Personal history of malignant neoplasm of breast
CPT/HCPCS: 77061; 77065

== ENCOUNTER → 2021-12-02 | Outpatient (CLI) | payer BC ==
--- NOTE | 2021-12-03 14:09 | MM ---
Reason for exam: screening (asymptomatic). Last mammogram was performed 1 year and 4 months ago. History: Patient is postmenopausal, has history of breast cancer at age 49, and had first child at age 31. Malignant MG pre op needle loc LT of the left breast, October 04, 2016. Mastectomy of the left breast, 2016. Lumpectomy of the right breast, 2004. Chemotherapy, 2004. Radiation therapy, 2004. Took hormonal contraceptives for 3 years beginning at age 21. Physical Findings: A clinical breast exam by your physician is recommended on an annual basis and results should be correlated with mammographic findings. MG 3D Scr Edel Unilateral W/Cad Bilateral CC and MLO view(s) were taken. XCCL view(s) were taken of the right breast. Prior study comparison: July 22, 2020, right breast MG 3d diag mammo w/cad RT. April 23, 2019, right breast MG 3d diag mammo w/cad RT. The breast tissue is heterogeneously dense. This may lower the sensitivity of mammography. Post surgical changes right upper outer quadrant. Axillary surgical clips. ASSESSMENT: Benign, BI-RAD 2 RECOMMENDATION: Routine screening mammogram of both breasts in 1 year.
== END | disposition home or self-care (01) ==
LOC: RADMAMWWP 10:09
PROVIDERS: ATTEND Family Medicine
DX: Z12.31 Encounter for screening mammogram for malignant neoplasm of breast (principal); Z78.0 Asymptomatic menopausal state; Z85.3 Personal history of malignant neoplasm of breast; Z92.3 Personal history of irradiation
CPT/HCPCS: 77067

== ENCOUNTER → 2023-02-10 | Outpatient (CLI) | payer BC ==
--- NOTE | 2023-02-13 18:23 | MM ---
Reason for Exam: Screening (asymptomatic). Last mammogram was performed 1 year(s) and 2 month(s) ago. Patient History: Menarche at age 15. First Full-Term at age 31. Late child-bearing (after 30). Postmenopausal. Breast cancer, left, age 49. Previous chest radiation therapy at age 49. Previous chemotherapy at age 49. Hormonal Contraceptives for 3 years from age 21 until age 24. 2016, Mastectomy on the Left side. 2004, Lumpectomy on the Right side. 10/04/2016, Malignant Core Biopsy on the left side. 2004, Chemotherapy. 2004, Radiation Therapy. Prior Study Comparison: 04/23/2019 Right Diagnostic Mammogram, [facility]. 07/22/2020 Right Diagnostic Mammogram, [facility]. 12/02/2021 Bilateral Screening Mammogram, [facility]. Tissue Density: Right: The breast tissue is heterogeneously dense. This may lower the sensitivity of mammography. Findings: Postsurgical and posttreatment changes redemonstrated right breast. In area of nodular asymmetric density central right MLO view incompletely disperses on the 3-D images and appears more defined from older priors. No clear correlate on the CC view. Further evaluation is recommended. Otherwise, no significant change. Overall Assessment: Incomplete: need additional imaging evaluation, BI-RAD 0 Management: Special View Mammogram of the right breast. Including spot 3-D MLO and 3-D lateral views. Targeted right breast ultrasound if any persisting abnormality. [facility] will attempt to contact patient to return for supplemental views and ultrasound if indicated. Electronically signed and approved by: Claribel Yen M.D. Radiologist
== END | disposition home or self-care (01) ==
LOC: RADMAMWWP 14:56
PROVIDERS: ATTEND Family Medicine
DX: Z12.31 Encounter for screening mammogram for malignant neoplasm of breast (principal); Z78.0 Asymptomatic menopausal state; Z90.12 Acquired absence of left breast and nipple; Z85.3 Personal history of malignant neoplasm of breast; Z98.890 Other specified postprocedural states
CPT/HCPCS: 77067

== ENCOUNTER → 2023-02-16 | Outpatient (CLI) | payer BC ==
--- NOTE | 2023-02-16 14:10 | MM ---
Reason for Exam: Additional evaluation requested from abnormal screening. Last screening mammogram was performed less than 1 month ago. Patient History: Menarche at age 15. First Full-Term at age 31. Late child-bearing (after 30). Postmenopausal. Breast cancer, left, age 49. Previous chest radiation therapy at age 49. Previous chemotherapy at age 49. Hormonal Contraceptives for 3 years from age 21 until age 24. 2016, Mastectomy on the Left side. 2004, Lumpectomy on the Right side. 10/04/2016, Malignant Core Biopsy on the left side. 2004, Chemotherapy. 2004, Radiation Therapy. Tissue Density: Right: The breast tissue is heterogeneously dense. This may lower the sensitivity of mammography. Findings: Analyzed By CAD. Stable. There is a stable prior biopsy present. Adjacent to the round calcification, no persistent suspicious density is identified. No distortion is identified. This area appears to disperse on compression. Short-term follow-up is recommended. Overall Assessment: Probably benign, BI-RAD 3 Management: Diagnostic Mammogram of the right breast in 6 months. A negative mammogram report should not preclude additional follow up of suspicious palpable abnormalities. Patient should continue monthly self breast exam. A clinical breast exam by your physician is recommended on an annual basis and results should be correlated with mammographic findings. Electronically signed and approved by: Ernesto Oneill D.O. Radiologis
== END | disposition home or self-care (01) ==
LOC: RADMAMWWP 13:32
PROVIDERS: ATTEND Family Medicine
DX: R92.8 Other abnormal and inconclusive findings on diagnostic imaging of breast (principal); Z78.0 Asymptomatic menopausal state; Z92.3 Personal history of irradiation
CPT/HCPCS: 77061; 77065